=== PATIENT | female | born 1935 | race Caucasian/White ===

== ENCOUNTER 2021-05-23 23:08 | Inpatient (IN) | payer BC, SELFPAY ==
[~2021-05-23] VITALS: Ht 170.2 cm; Wt 83.9 kg
[2021-05-23 23:08] VITALS: BP_SYST 177
--- NOTE | 2021-05-24 01:42 | NUR ---
Placed in room 03 . Placed on metal extrusion supervisor, blood pressure machine and pulse oximeter. To gown for exam. Side rails up.
--- NOTE | 2021-05-24 01:45 | NUR ---
Patient BIB BLS from [facility] for witnessed standing level slip and fall on carpet. Denies LOC, Complaining of right hip pain. No shortening or deformities noted. Patient reports unable to turn self. Pain 8/. Patient given Morphine Sulfate 4 mg IM en route to ED. Patient has history of DM, HLD, HTN.
--- NOTE | 2021-05-24 01:54 | NUR ---
ER Dr. Hinojosa at bedside examining patient.
[2021-05-24] MEDS ORDERED: NACL 0.9% 1,000 ML IV ONE (02:00)
[2021-05-24] MEDS ORDERED: MORPHINE 4 MG INJ. 4 MG/ML VIAL IVP ONE ×2 (02:00→04:15)
[2021-05-24] MEDS ORDERED: ONDANSETRON HCL 4 MG/2 ML VIAL IVP ONE (02:00)
--- NOTE | 2021-05-24 02:06 | NUR ---
EKG performed at BS by Augusto, EMT. Physician given copy of EKG for review.
--- NOTE | 2021-05-24 02:19 | NUR ---
# 18 gauge angiocath placed to RAC. Use of asceptic technique. Opsite placed over site. Blood return noted. Blood for lab drawn from site. Flushed with 10 cc of normal saline. No evidence of infiltration noted. Patient tolerated well.
[2021-05-24 02:32] LABS: BASOPHILS # (AUTO) 0.1 K/uL (0.0-0.2); BASOPHILS % (AUTO) 0.5 % (0.0-2.0); EOSINOPHILS # (AUTO) 0.1 K/uL (0.0-0.4); HEMATOCRIT 31.5 % (36-48); HEMOGLOBIN 10.2 g/dL (12.0-16.0); LYMPHOCYTES # (AUTO) 1.2 K/uL (1.0-5.5); LYMPHOCYTES % (AUTO) 10.1 % (20.5-51.5); MEAN CORPUSCULAR HEMOGLOBIN 26 pg (27-31); MEAN CORPUSCULAR HGB CONC 32 % (32-36); MEAN CORPUSCULAR VOLUME 80 fL (79.0-98.0); MONOCYTES # (AUTO) 0.7 K/uL (0.0-1.0); MONOCYTES % (AUTO) 6.3 % (1.7-9.3); NEUTROPHILS # (AUTO) 9.7 K/uL (1.8-7.7); NEUTROPHILS % (AUTO) 82.1 % (40.0-70.0); PLATELET COUNT (AUTO) 344 K/uL (130-430); RED BLOOD CELL COUNT(AUTO) 3.94 MIL/uL (4.2-6.2); RED CELL DISTRIBUTION WIDTH 15.4 % (9.0-15.0); WHITE BLOOD COUNT (AUTO) 11.8 K/uL (4.8-10.8)
[2021-05-24 02:43] LABS: ANION GAP 6 (5-15); CALCIUM 8.7 mg/dL (8.4-11.0); CHLORIDE 96 mmol/L (98-107); CREATININE 0.85 mg/dL (0.55-1.30); GLUCOSE 142 mg/dL (70-99); POTASSIUM 3.8 mmol/L (3.5-5.1); SODIUM SERUM 130 mmol/L (136-145); UREA NITROGEN, BLOOD 22 mg/dL (8-21)
[2021-05-24 02:52] LABS: ALANINE AMINOTRANSFERASE 21 U/L (12-78); ALBUMIN 2.8 g/dL (3.4-4.8); ASPARTATE AMINOTRANSFERASE 22 U/L (10-37); TOTAL BILIRUBIN 0.4 mg/dL (0.0-1.0)
[2021-05-24 02:53] LABS: PROTHROMBIN TIME 10.4 SECS (9.5-12.5)
--- NOTE | 2021-05-24 03:23 | NUR ---
report given to SIOMARA Bunch for continuation of care.
--- NOTE | 2021-05-24 03:25 | NUR ---
Received report from SIOMARA Keen to assume pt care. Pt is resting on gurney in pain. Pt reports she needs to void, but unable to move due to worsening pain to RT hip. Received v/o to insert f/c. Pt is in agreement with plan. Will initiate pending orders. Vss. Safety meaures in place.
[2021-05-24] MEDS ORDERED: DIPHENHYDRAMINE INJ 50 MG/ML VIAL IVP ONE (04:15)
[2021-05-24 04:44] LABS: BILIRUBIN,URINE NEGATIVE (NEGATIVE); BLOOD, URINE NEGATIVE (NEGATIVE); CLARITY/URINE CLEAR (CLEAR); COLOR,URINE YELLOW (YELLOW); GLUCOSE,URINE NEGATIVE (NEGATIVE); KETONES,URINE NEGATIVE (NEGATIVE); LEUKOCYTE ESTERASE ,URINE NEGATIVE (NEGATIVE); NITRITE, URINE NEGATIVE (NEGATIVE); PROTEIN URINE TRACE (NEGATIVE); UROBILINOGEN,URINE 0.2 (0.2-1.0)
[2021-05-24] MEDS ORDERED: ACETAMINOPHEN 325 MG TABLET PO PRN (08:15)
[2021-05-24] MEDS ORDERED: NALOXONE HCL 0.4 MG/ML AMP (NARCAN) IVP PRN (08:15)
[2021-05-24] MEDS ORDERED: HYDROcodone/ACETAMIN 5-325 MG TAB (NORCO/ VICODIN) PO PRN (08:15)
[2021-05-24] MEDS ORDERED: MORPHINE 4 MG INJ. 4 MG/ML VIAL IVP PRN ×2 (08:15→10:15)
--- NOTE | 2021-05-24 08:50 | NUR ---
CONSULTATION PAGED/CALLED Reason for Consultation: [] HIP FRACTURE Person Who was Notified: [] TYRON COUGHLIN Consulting Physician: [] TYRON COUGHLIN Compensation Business Partner Specialty: [] ORTHO Ordering Physician: [] DR DOMINGUEZ
--- NOTE | 2021-05-24 08:58 | NUR ---
CONSULTATION PAGED/CALLED Reason for Consultation: [] CARDIAC CLEARANCE; PREOP Person Who was Notified: [] DR SOSA Consulting Physician: [] DR SOSA Mortgage Lender Specialty: [] CARDIO Ordering Physician: [] DR DOMINGUEZ
--- NOTE | 2021-05-24 09:09 | NUR ---
Patient will be admitted to care of Dr. Harris. Admitted to [facility]. Will go to room 102A. Belongings list completed. Complete and up to date summary report printed. SBAR report to be given at bedside with opportunity for questions.
[2021-05-24 10:01] VITALS: BP_SYST 142
[2021-05-24] MEDS ORDERED: ONDANSETRON HCL 4 MG/2 ML VIAL IVP PRN (10:15)
[2021-05-24] MEDS ORDERED: METOCLOPRAMIDE HCL 10 MG/2 ML VIAL IVP PRN (10:15)
[2021-05-24] MEDS: INSULIN REGULAR, HUMAN 100 UNITS/ML, 10 ML VIAL (humuLIN R) SUBCUT PRN ×3 (12:02→22:10)
[2021-05-24] MEDS: HYDROcodone/ACETAMIN 10-325 MG TAB PO PRN (15:45)
[2021-05-24 16:00] VITALS: BP_SYST 155
--- NOTE | 2021-05-24 17:59 | NUR ---
alert, oriented, forgetful. complained of pain on Right hip, scaled 6-7/10 on arrival, morphine 2mg ivp given rested for a while, then again asking for pain meds, NORCO 10/325mg po with relief, she said. poor appetite, " your food has no taste", only drank ice water. Daughter Carmen came in, and got her connected to for more info about the surgery tomorrow.
[2021-05-24 20:08] VITALS: BP_SYST 163
[2021-05-24] MEDS: ENOXAPARIN SODIUM 40 MG/0.4 ML SYRINGE SUBCUT SCH (22:09)
[2021-05-25 00:30] VITALS: BP_SYST 154
--- NOTE | 2021-05-25 06:20 | NUR ---
PATIENT IS CONFUSED, CALLING HER . PATIENT IS ALERT AND ORIENTED X1 OR 2 AND FORGETFUL. REORIENTS PATIENTS OF REALITY AND SITUATION. REMINDED PATIENT THAT SHE HAD FALLEN. PATIENT PULLED OUT HER AUSTIN CATHETER. CHECKED PERINEAL AREA, NO BLEEDING OR INJURY NOTED FROM PULLING THE CATHETER. INSTRUCTED PATIENT THAT AUTSIN CATHETER WILL BE REINSERTED. ENDORSED IT TO THE DAYSHIFT RN.
[2021-05-25 08:00] VITALS: BP_SYST 126
[2021-05-25 08:40] LABS: BASOPHILS % (AUTO) 0.5 % (0.0-2.0); EOSINOPHILS # (AUTO) 0.1 K/uL (0.0-0.4); EOSINOPHILS % (AUTO) 0.7 % (0.0-4.0); HEMATOCRIT 28.7 % (36-48); HEMOGLOBIN 9.6 g/dL (12.0-16.0); LYMPHOCYTES # (AUTO) 1.2 K/uL (1.0-5.5); LYMPHOCYTES % (AUTO) 11.7 % (20.5-51.5); MEAN CORPUSCULAR HEMOGLOBIN 27 pg (27-31); MEAN CORPUSCULAR HGB CONC 33 % (32-36); MEAN CORPUSCULAR VOLUME 80 fL (79.0-98.0); MONOCYTES # (AUTO) 0.9 K/uL (0.0-1.0); MONOCYTES % (AUTO) 8.4 % (1.7-9.3); NEUTROPHILS # (AUTO) 8.2 K/uL (1.8-7.7); NEUTROPHILS % (AUTO) 78.7 % (40.0-70.0); PLATELET COUNT (AUTO) 286 K/uL (130-430); RED BLOOD CELL COUNT(AUTO) 3.59 MIL/uL (4.2-6.2); RED CELL DISTRIBUTION WIDTH 15.3 % (9.0-15.0); WHITE BLOOD COUNT (AUTO) 10.4 K/uL (4.8-10.8)
[2021-05-25 09:04] LABS: ALANINE AMINOTRANSFERASE 24 U/L (12-78); ALBUMIN 2.4 g/dL (3.4-4.8); ANION GAP 8 (5-15); ASPARTATE AMINOTRANSFERASE 57 U/L (10-37); CALCIUM 8.1 mg/dL (8.4-11.0); CHLORIDE 96 mmol/L (98-107); CREATININE 0.72 mg/dL (0.55-1.30); GLUCOSE 198 mg/dL (70-99); POTASSIUM 4.2 mmol/L (3.5-5.1); SODIUM SERUM 128 mmol/L (136-145); TOTAL BILIRUBIN 0.4 mg/dL (0.0-1.0); UREA NITROGEN, BLOOD 15 mg/dL (8-21)
--- NOTE | 2021-05-25 10:28 | NUR ---
Nutrition Update David Scale 14 noted. Pt admitted for N/A. Diet: CCHO & NPO (2 active/separate diet orders) BMI: 29 kg/m2 RD to follow per nutrition care standards.
[2021-05-25 11:33] VITALS: BP_SYST 151
[2021-05-25] MEDS ORDERED: KETOROLAC TROMETHAMINE 30 MG VIAL IVP ONE (13:35)
[2021-05-25] MEDS ORDERED: DESFLURANE 15 MIN GAS INH ONE (13:35)
[2021-05-25] MEDS ORDERED: SUGAMMADEX SODIUM 200 MG/2 ML VIAL IV ONE (13:35)
[2021-05-25] MEDS ORDERED: NS IRRIG SOLN 1000 ML IR ONE (13:35)
[2021-05-25] MEDS ORDERED: fentaNYL CITRATE 250 MCG/5 ML AMP IV ONE (13:35)
[2021-05-25] MEDS ORDERED: MIDAZOLAM HCL 5 MG/5 ML VIAL IVP ONE (13:35)
[2021-05-25] MEDS ORDERED: PROPOFOL 200MG/ 20ML VIAL (DIPRIVAN) IV ONE (13:35)
[2021-05-25] MEDS ORDERED: ROCURONIUM BROMIDE 10 MG/ML (ZEMURON) IV ONE (13:35)
[2021-05-25] MEDS ORDERED: NS 1000 ML IV.SOLN IV ONE (13:35)
[2021-05-25] MEDS ORDERED: BUPIVACAINE /EPINEPHRINE/PF 0.25% 30 ML VIAL INJ ONE (13:35)
[2021-05-25] MEDS ORDERED: MEPERIDINE HCL/PF 25 MG/ML DISP.SYRIN IVP PRN (14:45)
[2021-05-25] MEDS ORDERED: HYDROmorphone 1 MG/ML INJ. CARTRIDGE IVP PRN ×2 (14:45)
[2021-05-25] MEDS ORDERED: ONDANSETRON HCL 4 MG/2 ML VIAL IVP PRN (14:45)
[2021-05-25] MEDS ORDERED: LABETALOL 100 MG/ 20ML VIAL IVP PRN (14:45)
[2021-05-25] MEDS ORDERED: hydrALAZINE HCL 20 MG/ML VIAL IVP PRN (14:45)
[2021-05-25] MEDS: NACL 0.9% 1,000 ML IV SCH (15:45)
[2021-05-25 17:30] VITALS: BP_SYST 125
[2021-05-25] MEDS: HYDROcodone/ACETAMIN 10-325 MG TAB PO PRN (18:14)
[2021-05-25] MEDS: INSULIN REGULAR, HUMAN 100 UNITS/ML, 10 ML VIAL (humuLIN R) SUBCUT PRN ×2 (19:09→22:24)
--- NOTE | 2021-05-25 20:38 | NUR ---
RESTRAINTS ORDER PATIENT PULLED OUT HER AUST[place] CATHETER TWICE, S/P HI SURGERY,CONFUSED, DAUGHTER LIZETTE WAS HERE AND AGREED TO PUT THE BILATERAL WRIST RESTRAINTS TO PREVENT PULLING HER IV AND AUSTIN CATH.
[2021-05-25] MEDS: ENOXAPARIN SODIUM 40 MG/0.4 ML SYRINGE SUBCUT SCH (22:23)
[2021-05-25] MEDS: CEFAZOLIN 2 GM IVPB PREMIX 50 ML IV SCH (22:26)
[2021-05-25 22:29] LABS: HEMATOCRIT 26.3 % (36-48); HEMOGLOBIN 8.7 g/dL (12.0-16.0)
[2021-05-26] VITALS: BP_SYST 125
[2021-05-26 01:25] VITALS: BP_SYST 123
[2021-05-26] MEDS: NACL 0.9% 1,000 ML IV SCH ×3 (05:00→23:18)
[2021-05-26] MEDS: CEFAZOLIN 2 GM IVPB PREMIX 50 ML IV SCH (05:01)
[2021-05-26] MEDS: INSULIN REGULAR, HUMAN 100 UNITS/ML, 10 ML VIAL (humuLIN R) SUBCUT PRN ×3 (06:27→23:16)
[2021-05-26 08:00] VITALS: BP_SYST 121
--- NOTE | 2021-05-26 08:00 | NUR ---
RECEIVED NO RESTRAINTS AND QUIET IN BED. CALL LIGHT WITH IN REACH AND INSTRUCTED TO CALL IF NEEDED HELP. STATED UNDERSTANDING.
[2021-05-26 08:16] LABS: HEMATOCRIT 25.1 % (36-48); HEMOGLOBIN 8.3 g/dL (12.0-16.0)
[2021-05-26 12:30] VITALS: BP_SYST 127
--- NOTE | 2021-05-26 15:32 | NUR ---
PATIENTS PRIMARY MD HERE AND ORDERED TO DC IV AND AUSTIN. WILL TAPER O2 PER RT AND WEAN PATIENT IF NEED PER DR BETH.PATIENT STATED RELIEF FROM AUSTIN AND 400 ML OUT.
[2021-05-26 16:45] VITALS: BP_SYST 129
--- NOTE | 2021-05-26 19:45 | NUR ---
Opening note Received patient awake, resting in bed, no distress. Nonlabored breathing on 2L NC. Surgical dressing is CDI. Meal tray at bedside and only ate 25%. SCD's on. Bed is locked in lowest position, side rails up and bed alarm on. Updated board and call light s/in reach.
[2021-05-26 20:00] VITALS: BP_SYST 134
[2021-05-26] MEDS: ENOXAPARIN SODIUM 40 MG/0.4 ML SYRINGE SUBCUT SCH (23:12)
[2021-05-27 01:20] VITALS: BP_SYST 137
[2021-05-27] MEDS: NACL 0.9% 1,000 ML IV SCH ×2 (06:15→20:49)
[2021-05-27] MEDS: INSULIN REGULAR, HUMAN 100 UNITS/ML, 10 ML VIAL (humuLIN R) SUBCUT PRN ×3 (06:15→18:25)
[2021-05-27 08:00] VITALS: BP_SYST 145
[2021-05-27 09:01] LABS: BASOPHILS % (AUTO) 0.5 % (0.0-2.0); EOSINOPHILS # (AUTO) 0.1 K/uL (0.0-0.4); EOSINOPHILS % (AUTO) 0.8 % (0.0-4.0); HEMATOCRIT 23.8 % (36-48); LYMPHOCYTES % (AUTO) 11.3 % (20.5-51.5); MEAN CORPUSCULAR HEMOGLOBIN 27 pg (27-31); MEAN CORPUSCULAR HGB CONC 34 % (32-36); MEAN CORPUSCULAR VOLUME 79 fL (79.0-98.0); MONOCYTES # (AUTO) 0.8 K/uL (0.0-1.0); MONOCYTES % (AUTO) 9.1 % (1.7-9.3); NEUTROPHILS # (AUTO) 7.2 K/uL (1.8-7.7); NEUTROPHILS % (AUTO) 78.3 % (40.0-70.0); PLATELET COUNT (AUTO) 275 K/uL (130-430); RED BLOOD CELL COUNT(AUTO) 3.02 MIL/uL (4.2-6.2); RED CELL DISTRIBUTION WIDTH 15.2 % (9.0-15.0); WHITE BLOOD COUNT (AUTO) 9.2 K/uL (4.8-10.8)
[2021-05-27 11:26] LABS: ANION GAP 9 (5-15); CALCIUM 7.8 mg/dL (8.4-11.0); CHLORIDE 96 mmol/L (98-107); CREATININE 0.89 mg/dL (0.55-1.30); GLUCOSE 195 mg/dL (70-99); POTASSIUM 4.1 mmol/L (3.5-5.1); SODIUM SERUM 126 mmol/L (136-145); UREA NITROGEN, BLOOD 21 mg/dL (8-21)
[2021-05-27 12:00] VITALS: BP_SYST 138
--- NOTE | 2021-05-27 12:33 | NUR ---
accu check patients accu check done coverage given per order. patient has call [facility] with her educated to use for assistance no other needs at this time.
[2021-05-27 16:00] VITALS: BP_SYST 124
--- NOTE | 2021-05-27 19:05 | NUR ---
REPOASITIONED 2 HOURLY AND KEPT COMFORTABLE IN BED.
[2021-05-27 20:00] VITALS: BP_SYST 129
--- NOTE | 2021-05-27 20:00 | NUR ---
Received pt up in bed in stable condition. No signs of acute distress. Verbally responsive and able to make needs known. Breathing adequately on 2 lpm via NC. NS running @ 100 ml/hr and tolerating well. No signs of infiltration noted to IV site. Bed linen changed; kareem care provided. Noted with episode of incontinence to urine. Cleaned and kept dry. Call light within reach
[2021-05-27] MEDS: ENOXAPARIN SODIUM 40 MG/0.4 ML SYRINGE SUBCUT SCH (20:41)
[2021-05-28] VITALS: BP_SYST 122
[2021-05-28] MEDS: NACL 0.9% 1,000 ML IV SCH (03:51)
[2021-05-28 04:00] VITALS: BP_SYST 136
[2021-05-28 07:58] LABS: HEMATOCRIT 22.7 % (36-48); HEMOGLOBIN 7.6 g/dL (12.0-16.0)
[2021-05-28 08:00] VITALS: BP_SYST 142
[2021-05-28 12:50] VITALS: BP_SYST 132
[2021-05-28] MEDS: INSULIN REGULAR, HUMAN 100 UNITS/ML, 10 ML VIAL (humuLIN R) SUBCUT PRN (13:03)
--- NOTE | 2021-05-28 15:37 | NUR ---
PATIENT PHYSICAL THERAPY TODAY AND BED SATURATED WITH URINE. KEPT CLEAN AND DRY AND MADE PATIENT COMFORTABLE IN BED AFTER.
--- NOTE | 2021-05-28 15:55 | NUR ---
CALLED GLORIA. GAVE REPORT.
[2021-05-28] MEDS ORDERED: LOVI40 SQ (16:29)
[2021-05-28] MEDS ORDERED: DOCU-144 PO (16:37)
[2021-05-28] MEDS ORDERED: [UNRECOGNIZED DRUG - CODE] PO (16:48)
[2021-05-28] MEDS ORDERED: LOVA10TA55 PO (16:48)
[2021-05-28] MEDS ORDERED: LOVASTATIN PO ×2 (16:50→16:51)
[2021-05-28] MEDS ORDERED: METF-518 PO (16:58)
[2021-05-28] MEDS ORDERED: HCTZ PO (17:04)
[2021-05-28] MEDS ORDERED: DIOVAN PO (17:04)
--- NOTE | 2021-05-29 07:28 | NUR ---
PHYSICAL THERAPY CO-SIGN The Physical Therapy Progress Notes documented by Log Chain Worker have been reviewed. Reviewed/Co-Signed by: Hernán Price Documentation Done by: SOLE UNDERWOOD PTA Addendum: 05/29/21 at 0728 by Hernán Price PT Amended: Links added.
== END 2021-05-28 17:45 | DRG 481 ==
LOC: SED 23:08 → SMU 05-24 04:17
PROVIDERS: ADMIT Internal Medicine Hospice and Palliative Medicine; ATTEND Internal Medicine Hospice and Palliative Medicine
PROC: 0QH604Z Insertion of Internal Fixation Device into Right Upper Femur, Open Approach (ICD-10-PCS; principal; 2021-05-25 12:00)
DX: S72.141A Displaced intertrochanteric fracture of right femur, initial encounter for closed fracture (principal); E87.1 Hypo-osmolality and hyponatremia; E44.0 Moderate protein-calorie malnutrition; I10 Essential (primary) hypertension; Z20.822 Contact with and (suspected) exposure to COVID-19; E11.319 Type 2 diabetes mellitus with unspecified diabetic retinopathy without macular edema; D64.9 Anemia, unspecified; E86.0 Dehydration; W01.0XXA Fall on same level from slipping, tripping and stumbling without subsequent striking against object, initial encounter; Z79.4 Long term (current) use of insulin; Z79.84 Long term (current) use of oral hypoglycemic drugs; Z87.891 Personal history of nicotine dependence; Y93.89 Activity, other specified; Y92.89 Other specified places as the place of occurrence of the external cause; Y99.8 Other external cause status; Z68.29 Body mass index [BMI] 29.0-29.9, adult
CPT/HCPCS: 36415; 71045; 72170-TC; 73502; 73552; 73700-TC; 76000; 76376; 80048; 80053; 81003; 82962; 84484; 85018; 85025; 85610-TC; 85730-TC; 86886; 86900; 86901; 87081; 93005; 93306; 96361; 96374; 96375; 96376; 97110-GP; 97530-GP; 99285; J0690; J1200; J1650; J1815; J1885; J2250; J2270; J2405; J2704; J3010; J3490; J7030